=== PATIENT | male | born 1965 | race Caucasian/White ===

== ENCOUNTER 2017-03-13 05:59 | Emergency (ER) | payer OTHER ==
[~2017-03-13] VITALS: Ht 185.4 cm; Wt 78.5 kg
[2017-03-13 06:06] VITALS: BP_SYST 151
[2017-03-13] MEDS ORDERED: DIPH-TET-PERTUS Vaccine 0.5 ML VIAL (ADACEL) I.M. ONE (06:45)
[2017-03-13] MEDS ORDERED: cefTRIAXone 1 GM VIAL IM ONE (06:45)
[2017-03-13 07:12] VITALS: BP_SYST 149
== END 2017-03-13 07:12 | disposition home or self-care (01) ==
LOC: SED 05:59
DX: L03.012 Cellulitis of left finger (principal); J45.909 Unspecified asthma, uncomplicated; Z91.041 Radiographic dye allergy status
CPT/HCPCS: 90471; 90715; 96372; 99284; J0696